=== PATIENT | female | born 1945 | race Caucasian/White ===

== ENCOUNTER 2018-01-09 00:42 | Outpatient (CLI) | payer MEDICARE, BC, SELFPAY ==
--- NOTE | 2018-01-09 07:29 | DI.US_ITS ---
SYMPTOM/DIAGNOSIS: H/O SMALL GALLBLADDER POLYPS, ONE YEAR FOLLOW UP , R10.10, ABD PAIN, CHOLESTEROLOSIS OF GB, K82.4 ABDOMEN ULTRASOUND: Comparison is made with 08/31/16. The liver is normal in size and echogenicity. No biliary dilatation is seen. A few tiny hyperechoic foci are again noted on the gallbladder wall, consistent with tiny cholesterol polyps. There is no wall thickening or stones. The kidneys, spleen and aorta are unremarkable. The head of the pancreas was shadowed by bowel gas. IMPRESSION: Stable appearance of tiny cholesterol polyps of the gallbladder.
== END 2018-01-09 01:02 ==
PROVIDERS: PCP Nurse Practitioner Family; Visit Provider Nurse Practitioner Family
DX: R10.10 Upper abdominal pain, unspecified (principal); K82.4 Cholesterolosis of gallbladder
CPT/HCPCS: 76700

== ENCOUNTER → 2018-01-20 08:17 | Outpatient (BNVA) | payer MEDICARE, BC, SELFPAY | PROVIDERS: PCP Nurse Practitioner Family; Referring Provider Nurse Practitioner Family; Visit Provider Surgery | DX: R10.10 Upper abdominal pain, unspecified (principal); K82.4 Cholesterolosis of gallbladder | CPT/HCPCS: 99213 ==

== ENCOUNTER 2018-07-06 10:50 | Outpatient (CLI) | payer MEDICARE, BC, SELFPAY ==
[2018-07-06 13:12] LABS: Abs Immature Grans 0.01 k/cumm (0.0-0.09); Absolute Basophil Count 0.03 k/cumm (0.0-0.2); Absolute Eosinophil Count 0.04 k/cumm (0.0-0.7); Absolute Lymphocyte Count 1.62 k/cumm (1.2-3.4); Absolute Monocyte Count 0.48 k/cumm (0.11-0.7); Absolute Neutrophil Count 3.18 k/cumm (1.2-6.7); Basophils % 0.6; Eosinophils % 0.7; HCT 38.9 % (36.0-46.0); HGB 12.9 g/dL (12.0-15.5); Immature Grans % 0.2; Lymphocytes % 30.2; Mean Corp. HGB Concentration 33.2 g/dL (32.0-36.0); Mean Corpuscular Hemoglobin 31.5 pg (27.0-33.0); Mean Corpuscular Volume 95.1 fL (80-95); Mean Platelet Volume 10.6 fL (8.0-11.0); Neutrophils % 59.3; Platelet Count 202 x1000/uL (130-400); RBC 4.09 m/cumm (4.00-5.20); RBC Distribution Width 13.1 % (11.7-14.6); White Blood Cell Count 5.36 k/cumm (4.4-10.8)
[2018-07-06 14:04] LABS: Lipase 92 U/L (73-393)
[2018-07-06 14:10] LABS: ALT 31 U/L (12-78); AST 31 U/L (15-37); Albumin 3.9 g/dL (3.4-5.0); Alkaline Phosphatase 116 U/L (46-116); Anion Gap 7.8 mmol/L (3-11); BUN 21 mg/dL (7-18); Bilirubin, Total 0.4 mg/dL (0.2-1.0); CO2 30.2 mmol/L (21.0-32.0); CREATININE 0.84 mg/dL (0.55-1.02); Chloride 100 mmol/L (98-107); Glucose 109 mg/dL (70-100); Potassium 4.3 mmol/L (3.5-5.1); Sodium 138 mmol/L (136-145); Total Protein 7.4 g/dL (6.4-8.2)
== END 2018-07-06 11:10 ==
PROVIDERS: PCP Nurse Practitioner Family; Visit Provider Nurse Practitioner Family
DX: R10.9 Unspecified abdominal pain (principal)
CPT/HCPCS: 36415; 80053; 83690; 85025

== ENCOUNTER 2019-03-07 00:59 | Outpatient (CLI) | payer MEDICARE, BC, SELFPAY ==
--- NOTE | 2019-03-07 08:25 | DI.MAMMO_ITS ---
EXAM: MG MAMMO SCREENING CLINICAL HISTORY: screening, Z12.39. TECHNIQUE: Full field digital CC and MLO mammographic images were obtained with 3D tomosynthesis and utilizing computer aided detection (CAD). COMPARISON: [id number] FINDINGS: Breast Density - Category D - Extremely dense Masses/Architectural Distortion: None seen. Microcalcifications: No suspicious pleomorphic-type calcifications are seen. Skin Thickening/Nipple Retraction: None. Axilla: Unremarkable. IMPRESSION: 1. BI-RADS category 1, negative. No significant interval change with no specific features of maligna ncy noted. 2. Unless there is more urgent need, screening mammography is recommended, as per [employer] guidelines. BI-RADS Cat 1 - Negative Breast Density - Category D - Extremely dense The mammogram demonstrates the patient's breast tissue is dense. Dense breast tissue is very common a nd is not abnormal but dense breast tissue can make it harder to find cancer on a mammogram. Also, de nse breast tissue may increase their breast cancer risk. This information about the result of the [facility] mogram report was provided to the patient to raise their awareness. Use this report when you speak wi th the patient about their risks for breast cancer, which includes their family history. At that time , you may recommend for more screening tests (Ultrasound or MRI) as they might be useful based on the ir risk. A negative radiographic report should not delay biopsy if a dominant or clinically suspicious mass is present. Up to ten percent of cancers are not identified on mammography. A negative report may reinforce clinical impression. Adenosis and dense breasts may obscure an underlying neoplasm. False positive reports average 6 to 10%. A negative radiographic report should not delay biopsy if a dominant or clinically suspicious mass is present. Up to ten percent of cancers are not identified on mammography. A negative report may reinforce clinical impression. Adenosis and dense breasts may obscure an underlying neoplasm. False positive reports average 6 to 10%. Patient will receive a letter notifying them of these results.
[2019-03-07 08:36] LABS: Glucose 102 mg/dL (74-106)
[2019-03-07 11:45] LABS: Hemoglobin A1C 5.8 % (4.5-6.2)
== END 2019-03-07 01:19 ==
PROVIDERS: Nurse Practitioner; PCP Nurse Practitioner Family; Visit Provider Nurse Practitioner Family
DX: Z12.31 Encounter for screening mammogram for malignant neoplasm of breast (principal); R73.01 Impaired fasting glucose
CPT/HCPCS: 36415; 77063; 77067; 82947; 83036

== ENCOUNTER → 2019-06-01 08:10 | Outpatient (BNVA) | payer MEDICARE, BC, SELFPAY | PROVIDERS: PCP Nurse Practitioner Family; Referring Provider Nurse Practitioner Family; Visit Provider Physical Therapy Assistant | DX: Z12.11 Encounter for screening for malignant neoplasm of colon (principal); Z80.0 Family history of malignant neoplasm of digestive organs ==

== ENCOUNTER 2019-08-21 08:18 | Outpatient (CLI) | payer MEDICARE, BC, SELFPAY ==
[2019-08-22 02:53] LABS: COVID-19 RT-PCR UVMMC Result Negative (Negative)
== END 2019-08-21 08:38 ==
PROVIDERS: PCP Nurse Practitioner Family; Visit Provider Surgery
DX: Z11.59 Encounter for screening for other viral diseases (principal); Z01.818 Encounter for other preprocedural examination
CPT/HCPCS: U0003

== ENCOUNTER 2019-08-24 06:46 | Day surgery (SDC) | payer MEDICARE, BC, SELFPAY ==
[2019-08-24 07:03] VITALS: BP 111/61; PULSE 75; RESP 17; TEMP 36.5; O2SAT 99
--- NOTE | 2019-08-24 07:22 | W.PM.HP.N ---
Date of service: 08/24/19 Time of Service: 07:55 Assessment and Plan Assessment and plan (1) Encounter for screening colonoscopy: Status: Acute Assessment and plan: I advised colonoscopy. The procedure was described including the risks of perforation with need for surgery or bleeding. Patient agrees to proceed. History of Present Illness Narrative: 74 y/o female with a benign medical history presents for colonoscopy screening pre-op. Her last screening was in 2009, which was unremarkable. She has a family history of colon cancer in two maternal aunts. She denies any changes in bowel habits including bloody or black tarry stools, abdominal pain, diarrhea or constipation. She denies constitutional symptoms. Denies use of marijuana or any other recreational or illegal drugs. She denies chest pain, palpitations, dyspnea or dyspnea with exertion. She exercises daily participating in cross country skiing, walking, biking and using her [employer] track. She denies prior history or family history of adverse reactions or complications with anesthesia. She denies having any metal implanted in her body. Review of Systems All systems reviewed & are unremarkable except as noted in HPI and below [facility] Medical History Gallbladder polyp (Chronic 09/14/16) F/u US showing stability -- no further f/u necessary Osteoporosis, unspecified (Chronic 04/30/11) DXA 2010: Lumbar spine T-score -2.6 (down -5.7% from 2008 study); Hip T-score -2.4 (improved +4.7) 2nd course alendronate started ~12/2015 --> plan to d/c ~12/2020 Urgency of urination (Inactive 07/31/13) Kegels Urinary incontinence (Chronic) Surgical History Biopsy, Soft Tissue (Resolved 06/09/17) sebaceous cyst upper back History of colonoscopy (Chronic) x2 Family History Mother , Dementia--AD at age 89. Hypertensive disorder, systemic arterial Med Osteoporosis Father , Cirrhosis at age 72. Hemochromatosis Maternal Aunt Colorectal cancer Other Heart disease Social History Smoking/Tobacco Use Status: Former Tobacco Use Quit Date: 03/21/65 Alcohol Intake: current Alcohol Intake frequency: a few times a month Alcohol type: wine Drug use: Never Substance use type: does not use Adopted: No Caregiver/Support person: No Foster care: No Household members: spouse Housing: house Number of Children: 1 Communication Needs: None Pets and animals: No Sexually active: No Current gender identity: female What type of physical activity do you participate in: regular exercise Duration: 30-45 minutes/day Frequency: 5-6 times per week Seatbelt use: always Water heater temp set <120 deg: Yes Working smoke detector in home: Yes Fire extinguisher in home: Yes Carbon monox detector in home: Yes Firearms in home: Yes (unloaded, no locked) Do you feel safe at home: Yes Do you feel safe in your relationship?: Yes Female Reproductive History Menstrual Menopause type: natural History History Para 1 Hx # Term Pregnancies Multiple births Hx # Pregnancies Ectopic pregnancies AB induced Hx Number of Living Children AB spontaneous Meds Home Medications and Allergies Home Medications Medication Instructions Recorded Confirmed Type bjnwtcznlugu-euntrfyo-esqluz 1 ea PO DAILY 07/05/12 08/24/19 History [Cerovite Senior Tablet] acetaminophen [Tylenol] 650 mg PO Q6H PRN PRN #30 tab 06/09/17 08/24/19 Rx ibuprofen 600 mg PO Q6H PRN PRN #30 tab 06/09/17 08/24/19 Rx lactase 9,000 unit tablet 9,000 unit PO ONCE PRN 09/22/18 08/24/19 History bisacodyl 5 mg tablet,delayed 5 mg PO ONCE #4 tab 06/01/19 08/24/19 Rx release polyethylene glycol 3350 17 238 g PO ONCE #238 gm 06/01/19 08/24/19 Rx gram/dose oral powder salicylic acid 40 % topical patch 1 applic TP DAILY each 06/01/19 08/24/19 History alendronate 70 mg tablet 70 mg PO once a week #12 tab-cap 08/20/19 08/24/19 Rx Allergies Allergy/AdvReac Type Severity Reaction Status Date / Time pollen Allergy Unknown Uncoded 08/24/19 07:20 scents in soap, air Allergy Unknown watery eyes Uncoded 08/24/19 07:20 freshners, etc. Exam Narrative Exam Narrative: Appears well Heart RRR Lungs CTA Abdomen soft, nontender Results Last Vital Signs Temp 97.7 F 08/24/19 07:03 Pulse 75 08/24/19 07:03 Resp 17 08/24/19 07:03 BP 111/61 08/24/19 07:03 Pulse Ox 99 08/24/19 07:03 COVID-19 Screening In the past 14 days, have you traveled outside of [place] or [place]?: NO
[2019-08-24] MEDS: Lactated Ringers 1,000 ML 80 ML IV (07:34)
--- NOTE | 2019-08-24 08:05 | W.PM.DSUDISC ---
Discharge Plan Disposition Patient Disposition: HOME Condition: Good Discharge Details Reason For Visit: Colonoscopy Attending Provider: Jailene Jones Primary Care Provider: Lizzie Long Home Meds and New Rx's Prescriptions: Continued salicylic acid 40 % adhesive patch,medicated 1 applic TP DAILY RF: 0 Dairy Relief 9,000 unit tablet 9,000 unit PO ONCE PRN (Reason: lactose intolerance) RF: 0 Cerovite Senior 1 EACH tablet 1 ea PO DAILY RF: 0 alendronate [Fosamax] 70 mg tablet 70 mg PO once a week Qty: 12 RF: 0 acetaminophen [Tylenol] 325 MG tablet 650 mg PO Q6H PRN PRNQty: 30 RF: 0 ibuprofen 600 MG tablet 600 mg PO Q6H PRN PRNQty: 30 RF: 0 Discontinued polyethylene glycol 3350 17 gram/dose powder 238 g PO ONCE Qty: 238 RF: 0 bisacodyl [Dulcolax (bisacodyl)] 5 mg tablet,delayed release (DR/EC) 5 mg PO ONCE Qty: 4 RF: 0 Discharge Instructions Additional Instructions: Findings: Your colonoscopy was normal. Follow up: Routine screening colonoscopy is not needed, but if symptoms such as change in bowel habits or rectal bleeding occur, please contact your primary care provider. Please call if you develop: fevers >101.5 Nausea or Vomiting Abdominal pain that is not transient DAY SURGERY UNIT POST COLONOSCOPY INSTRUCTIONS 1. Because there will be medication in your system for the next 24 hours, you may feel a little sleepy. Your coordination will be affected. Therefore: a. Do not drive or operate dangerous equipment for 24 hours. b. Do not drink alcohol beverages for 24 hours (not even beer). c. Plan to go home and rest for the day. 2. Generally there are no restrictions on your activity after a day or so has gone by, but you may feel a bit fatigued for a few days. 3 After you arrive home you may have a light meal and return to a normal diet as you can tolerate it without feeling sick to your stomach. 4. After surgery, you may feel pain or discomfort. This should be only transient, but if it persists please contact your doctor. 5. If there are any questions regarding the findings of your procedure, please feel free to contact your doctor. 6. If you are unable to contact your doctor with a problem, contact the hospital at [phone]. 7. Continue all your regular medications unless directed otherwise. I understand the above instructions and have no questions. Signature of Patient or Responsible Adult Escort Date/Time Name of Responsible Adult Escort Signature of Nurse Date/Time Activity:: Activity as Tolerated Diet:: As Tolerated Discharge Orders Discharge Orders: Discharge Order (Routine); Ordered 08/24/19 Ordered By: Jailene Jones DS: Diagnosis Discharge Diagnosis (1) Encounter for screening colonoscopy: Status: Acute
--- NOTE | 2019-08-24 08:06 | ROE_ITS ---
Date of service: 08/24/19 Time of Service: 08:49 Operative Note Operative Note DATE OF PROCEDURE: 08/24/19 PRE-OP DIAGNOSIS: Screening Normal colon PROCEDURE: Colonoscopy SURGEON: Jailene Jones ANESTHESIA: MAC Patient was transported to: same day Indications: This patient presents for routine screening. She has no symptoms or family history of colon cancer. Last colonoscopy in 2009 was normal. Procedure Description: The patient was placed in the left Ramey position. Propofol was titrated to sedation. Digital rectal examination revealed no abnormalities. The scope was advanced to the cecum without difficulty. The i leocecal valve and appendiceal orifice were clearly identified. The prep was good. The scope was slowly withdrawn over the course of greater than 6 minutes with no abnormalities seen in the ascending, transverse, descending, sigmoid colon or rectum including on retroflexed view. The patient tolerated the procedure well and was stable to recovery. Routine screening is not indicated but colonoscopy can be considered if symptoms arise.
[2019-08-24 09:15] VITALS: BP 91/52; PULSE 68; RESP 18; TEMP 36.4; O2SAT 99
== END 2019-08-24 10:00 | disposition home or self-care (01) ==
PROVIDERS: PCP Nurse Practitioner Family; Visit Provider Surgery
PROC: 0DJD8ZZ Inspection of Lower Intestinal Tract, Via Natural or Artificial Opening Endoscopic (ICD-10-PCS; CPT 45378; principal; 2019-08-24 08:15)
DX: Z12.11 Encounter for screening for malignant neoplasm of colon (principal)
CPT/HCPCS: G0121; NC

== ENCOUNTER 2020-05-15 02:19 | Outpatient (CLI) | payer MEDICARE, BC, SELFPAY ==
[2020-05-15 09:27] LABS: Abs Immature Grans 0.01 10^3/uL (0.0-0.06); Absolute Basophil Count 0.05 10^3/uL (0.0-0.2); Absolute Eosinophil Count 0.08 10^3/uL (0.0-0.7); Absolute Lymphocyte Count 1.25 10^3/uL (1.2-3.4); Absolute Monocyte Count 0.56 10^3/uL (0.1-0.8); Absolute Neutrophil Count 2.55 10^3/uL (1.2-6.7); Basophils % 1.1; Eosinophils % 1.8; HGB 12.8 g/dL (11.2-15.7); Immature Grans % 0.2; Lymphocytes % 27.8; MCH 31.8 pg (27.0-33.0); MCHC 32.8 % (32.0-36.0); MPV 10.6 fL (8.0-11.0); Monocytes % 12.4; Neutrophils % 56.7; Nucleated RBC 0 %; Platelet Count 204 10^3/uL (130-400); RBC 4.02 10^6/uL (3.93-5.22); RDW 12.9 % (11.7-14.6)
[2020-05-15] MEDS: Breeza Beverage 473 ML BTL PO (09:46)
[2020-05-15] MEDS: Omnipaque 350 MG/ML 50 ML BTL PO (09:46)
[2020-05-15 09:49] LABS: ALT 30 U/L (14-59); AST 32 U/L (15-37); Albumin 3.9 g/dL (3.4-5.0); Alkaline Phosphatase 124 U/L (46-116); Anion Gap 4.9 mmol/L (3-11); BUN 20 mg/dL (7-18); Bilirubin, Total 0.7 mg/dL (0.2-1.0); CO2 30.1 mmol/L (21.0-32.0); CREATININE 0.8 mg/dL (0.55-1.02); Calcium 8.9 mg/dL (8.5-10.1); Chloride 104 mmol/L (98-107); Glucose 110 mg/dL (74-106); Lipase 76 U/L (73-393); Potassium 3.9 mmol/L (3.5-5.1); Sodium 139 mmol/L (136-145); Total Protein 7.9 g/dL (6.4-8.2)
[2020-05-15 10:16] LABS: Hemoglobin A1C 5.8 % (<5.7)
--- NOTE | 2020-05-15 10:25 | DI.CT_ITS ---
EXAM: CT ABDOMEN W CLINICAL HISTORY: abd pain w/ twisting, s/p NL US, persists, r/o mass,. TECHNIQUE: Imaging Protocol: Axial computed tomography images with coronal and sagittal reformatted images were created and reviewed CONTRAST MATERIAL: Intravenous: Omnipaque 350-100 cc Oral: Yes COMPARISON: US US ABDOMEN from 01/09/2018 FINDINGS: VISUALIZED LUNG BASES: No nodules nor pleural effusions evident. ABDOMEN: There is no ascites in the upper abdomen. LIVER: There are no obvious focal hepatic lesions evident of this noninfused study. GALLBLADDER/BILIARY: No obvious gallbladder pathology. CBD is not dilated. PANCREAS: No evidence of pancreatic mass nor dilatation of the pancreatic duct. SPLEEN: Spleen is not enlarged. No obvious intrasplenic lesions. ADRENALS: There are no significant adrenal masses. KIDNEYS:No cysts evident. No solid renal masses. No calculi nor hydronephrosis. . ABDOMINAL AORTA: Abdominal aorta is not enlarged. LYMPH NODES: There is no retroperitoneal nor paraaortic adenopathy. ABDOMINAL WALL/GI: No evidence of significant anterior abdominal hernia at and above the umbilicus le javier. There is no bowel obstruction. The oral contrast has reached the colon. OSSEOUS: No lytic osseous lesions. Advanced disc space narrowing L5-S1 level noted. IMPRESSION: 1. No significant findings on this contrast infused CT scan of the abdomen. 2. I note the prior ultrasound examination 2017 apparently revealed findings in the gallbladder. Cli nically indicated repeat gallbladder ultrasound can be performed. 3. Pelvis was not scanned RADIATION DOSE DELIVERED: 272.48mGy.cm Total DLP DATA REPOSITORY: All CT scans at this facility are submitted to the National Radiology Data Registry (NRDR) Dose Index Registry (DIR) with the [employer] (A[employer]). RADIATION OPTIMIZATION: All CT scans at this facility use at least one of these dose optimization te chniques: automated exposure control; mA and/or kV adjustment per patient size (includes targeted exa ms where dose is matched to clinical indication); or iterative reconstruction.
[2020-05-15] MEDS: Omnipaque 350 MG/ML 100 ML BTL IJ (10:33)
[2020-05-15] MEDS: Normal Saline - Diluent 50 ML VIAL IV (10:33)
[2020-05-15] MEDS: Normal Saline Flush 10 ML SYR IVP (10:35)
== END 2020-05-15 02:20 ==
LOC: DI 02:19
PROVIDERS: PCP Nurse Practitioner Family; Visit Provider Nurse Practitioner Family
DX: R10.10 Upper abdominal pain, unspecified (principal)
CPT/HCPCS: 80053; 83690; 74160; 83036; 85025; J3490; Q9967

== ENCOUNTER 2021-04-29 01:42 | Outpatient (CLI) | payer MEDICARE, SELFPAY ==
[2021-04-29 14:28] LABS: Hemoglobin A1C 5.9 % (<5.7)
[2021-04-29 15:39] LABS: Anion Gap 7.1 mmol/L (3-11); BUN 22 mg/dL (7-18); CO2 29.9 mmol/L (21.0-32.0); CREATININE 0.9 mg/dL (0.55-1.02); Calcium 9.5 mg/dL (8.5-10.1); Chloride 103 mmol/L (98-107); Glucose 129 mg/dL (74-106); Potassium 4.3 mmol/L (3.5-5.1); Sodium 140 mmol/L (136-145)
[2021-04-30 00:09] LABS: Vitamin D 25 Total 33.5 ng/mL (30-100)
== END 2021-04-29 01:43 | disposition home or self-care (01) ==
LOC: LBO 01:42
PROVIDERS: PCP Nurse Practitioner Family; Visit Provider Nurse Practitioner Family
DX: R73.01 Impaired fasting glucose (principal); M81.0 Age-related osteoporosis without current pathological fracture; Z51.81 Encounter for therapeutic drug level monitoring
CPT/HCPCS: 36415; 80048; 82306; 83036

== ENCOUNTER 2021-05-11 01:48 | Outpatient (CLI) | payer MEDICARE, SELFPAY ==
--- NOTE | 2021-05-11 08:15 | DI.MAMMO_ITS ---
Exam(s) MAMMO SCREENING EXAM: MAMMO SCREENING CLINICAL HISTORY: screening,z12.39. TECHNIQUE: Bilateral full field digital CC and MLO mammographic images were obtained with 3D tomosyn thesis and utilizing computer aided detection (CAD). COMPARISON: Prior mammograms were reviewed, the most recent being February 2019. FINDINGS: The fibroglandular tissue is again noted be very dense, this decreasing the sensitivity of the mammog graciela for finding hidden underlying lesions. There are no new obvious spiculated masses nor malignant appearing microcalcification groups. There is no significant architectural distortion nor skin thickening-retraction. IMPRESSION: Very dense bilateral fibroglandular tissue. No obvious radiographic evidence of malignancy nor signi ficant change compared to prior mammograms. Given the density of this patient's fibroglandular tissu e if clinically indicated bilateral screening breast ultrasound exam can be performed to determine if there are hidden lesion subjacent to her dense fibroglandular tissue on mammography. BI-RADS Category 2 - Benign Findings Breast Density - Category D - Extremely dense Breast density Category C or D implies that the patient has dense breast tissue. Dense breast tissue can make it harder to find cancer on a mammogram. Dense breast tissue is also associated with an incr eased risk of breast cancer. This information about the result of the mammogram report was provided to the patient to raise their awareness. Use this report when you speak with the patient about their risks for breast cancer, which includes their family history. At that time, you may recommend additional screening tests (Ultrasoun d or MRI) as these tests may add significant information. A negative radiographic report should not delay biopsy if a dominant or clinically suspicious mass is present. Up to ten percent of cancers are not identified on mammography. A negative report may reinforce clinical impression. Adenosis and dense breasts may obscure an underlying neoplasm. False positive reports average 6 to 10%. Patient will receive a letter notifying them of these results.
== END 2021-05-11 02:08 ==
PROVIDERS: PCP Nurse Practitioner Family; Visit Provider Nurse Practitioner Family
DX: Z12.31 Encounter for screening mammogram for malignant neoplasm of breast (principal); N64.89 Other specified disorders of breast
CPT/HCPCS: 77063; 77067

== ENCOUNTER → 2022-04-12 11:08 | Outpatient (BNVA) | payer MEDICARE, SELFPAY | PROVIDERS: PCP Nurse Practitioner Family; Referring Provider Nurse Practitioner Family; Visit Provider Surgery | DX: K62.5 Hemorrhage of anus and rectum (principal); R53.83 Other fatigue; M81.0 Age-related osteoporosis without current pathological fracture; Z86.2 Personal history of diseases of the blood and blood-forming organs and certain disorders involving the immune mechanism | CPT/HCPCS: 36415; 99212; 99214 ==

== ENCOUNTER 2022-04-12 12:10 | Outpatient (REF) | payer MEDICARE, SELFPAY ==
[2022-04-12 12:31] LABS: Abs Immature Grans 0.01 10^3/uL (0.0-0.06); Absolute Basophil Count 0.05 10^3/uL (0.0-0.2); Absolute Lymphocyte Count 1.36 10^3/uL (1.2-3.4); Absolute Monocyte Count 0.55 10^3/uL (0.1-0.8); Absolute Neutrophil Count 3.08 10^3/uL (1.2-6.7); Eosinophils % 1.9; HCT 37.4 % (36.0-46.0); HGB 12.6 g/dL (11.2-15.7); Immature Grans % 0.2; Lymphocytes % 26.4; MCHC 33.7 % (32.0-36.0); MCV 95 fL (80-95); MPV 11.3 fL (8.0-11.0); Monocytes % 10.7; Neutrophils % 59.8; Platelet Count 191 10^3/uL (130-400); RBC 3.94 10^6/uL (3.93-5.22); RDW 12.5 % (11.7-14.6); RDW-SD 43.9 fL; WBC 5.15 10^3/uL (4.4-10.8)
[2022-04-12 13:05] LABS: Iron 89 ug/dL (50-170); Total Iron Binding Capacity 345 ug/dL (250-450); Transferrin Sat 26 % (15-50)
[2022-04-12 13:10] LABS: ALT 28 U/L (14-59); AST 32 U/L (15-37); Albumin 3.9 g/dL (3.4-5.0); Alkaline Phosphatase 120 U/L (46-116); Anion Gap 8.2 mmol/L (3-11); BUN 25 mg/dL (7-18); Bilirubin, Total 0.6 mg/dL (0.2-1.0); CO2 26.8 mmol/L (21.0-32.0); CREATININE 0.8 mg/dL (0.55-1.02); Calcium 9.3 mg/dL (8.5-10.1); Chloride 103 mmol/L (98-107); Estimated GFR 76.31 (mL/min/1.73m2); Ferritin 179 ng/mL (8-252); Folate 19.9 ng/mL (8.6-20.0); Glucose 107 mg/dL (74-106); Potassium 4.1 mmol/L (3.5-5.1); Sodium 138 mmol/L (136-145); Total Protein 7.7 g/dL (6.4-8.2); Vitamin B12 909 pg/mL (193-986)
== END 2022-04-12 12:11 | disposition home or self-care (01) ==
LOC: LBN 12:10
PROVIDERS: PCP Nurse Practitioner Family; Visit Provider Surgery
DX: K62.5 Hemorrhage of anus and rectum (principal); M81.0 Age-related osteoporosis without current pathological fracture; R53.83 Other fatigue; R73.01 Impaired fasting glucose; Z86.2 Personal history of diseases of the blood and blood-forming organs and certain disorders involving the immune mechanism
CPT/HCPCS: 80053; 82607; 82728; 82746; 83540; 83550; 85025

== ENCOUNTER 2022-04-22 09:48 | Day surgery (SDC) | payer MEDICARE, SELFPAY ==
--- NOTE | 2022-04-21 21:33 | W.PM.DSUDISC ---
Date of service: 04/22/22 Time of Service: 12:07 Discharge Plan Disposition Patient Disposition: Home Condition: Good Discharge Details Reason For Visit: Diagnostic colonoscopy Attending Provider: Mitch Jones Primary Care Provider: Lizzie Long Home Meds and New Rx's Prescriptions: Continued lactase [Dairy Relief] 9,000 unit tablet 9,000 unit PO ONCE PRN (Reason: lactose intolerance) Cerovite Senior 1 EACH tablet 1 ea PO DAILY Discontinued polyethylene glycol 3350 17 gram/dose powder 238 g PO ONCE Qty: 238 0RF Rx Instructions: take per colonoscopy instructions bisacodyl [Dulcolax (bisacodyl)] 5 mg tablet,delayed release (DR/EC) 5 mg PO ONCE Qty: 4 0RF Rx Instructions: take per colonoscopy instructions Discharge Instructions Instructions: Hemorrhoids (GEN), Rectal Bleeding (GEN) Additional Instructions: 1. If tolerated, consume a soft, low fiber diet for 1-2 days. 2[address] Do not drive, drink alcohol, operate machinery, make critical decisions, or do activities that require coordination or balance for 24 hours. 3. Because air was put into your colon during the procedure, expelling air from your rectum (passing gas or farting) is normal. 4. You may not have a bowel movement for 1-3 days because of the colonoscopy prep. This is normal. 5. Go directly to the emergency room if you notice any of the following: Develop chills (warm to touch), or if you have a thermometer and your temperature is above 101 Difficulty breathing or difficultly swallowing Persistent vomiting Severe abdominal pain, other than gas cramps Severe chest pain Black, tarry stools Any bleeding ? exceeding one tablespoon 6. Call your physician if the site where your intravenous was started becomes red, swollen, painful, and warm to touch. 7. Your physician has reviewed your pre-procedure medications. Please continue to take those medications as previously ordered. You will be given specific information/education regarding any changes to your medications before leaving. Activity:: Activity as Tolerated Diet:: As Tolerated Discharge Orders Discharge Orders: Discharge Order (Routine); Ordered 04/21/22 Ordered By: Mitch Jones DS: Diagnosis Discharge Diagnosis (1) Rectal bleeding: Status: Acute Asessment and Plan: No clear source of rectal bleeding identified. Grade 1 internal hemorrhoids.
--- NOTE | 2022-04-21 21:34 | W.COLOREPORT ---
Date of service: 04/22/22 Time of Service: 12:10 Colonoscopy Report Date of procedure: 04/22/22 Pre-op diagnosis general: Hematochezia Procedure: Colonoscopy Surgeon: Mitch Jones Anesthesia Type: General:No Airway Complications: None Disposition: same day Indications: Blanche is a 77-year-old woman with a recent episode of hematochezia. Prep: Miralax/Dulcolax Procedure Start Time: 11:35 Procedure End Time: 11:53 Retraction Time: 10 Findings: Normal colonoscopy Procedure Description: After the induction of monitored anesthetic care, and with the patient in left lateral decubitus position, I began by performing an external anorectal exam.? Perineum and skin were normal, as was the anal verge.? There was no evidence of external hemorrhoids.? Next, I performed a digital rectal exam.? I did not appreciate any abnormal findings.? Next, I advanced a colonoscope into the rectal vault.? I performed retroflexion.? There was mild evidence of internal hemorrhoids, with no dominant vessels. The remainder of the rectal vault was totally normal. There was no erythema. The mucosa was not friable. There was no evidence of any AV malformations.? Using insufflation, I then advanced the colonoscope beyond the rectal folds and into the sigmoid colon before advancing towards the cecum.? The quality of the prep was excellent.? The scope was noted to be in the cecum by identification of the ileocecal valve and appendiceal orifice.? I then began withdrawing the colonoscope using repeated irrigation as necessary for full evaluation of the colonic mucosa. ?Once the scope was withdrawn to the level of the rectum, great care was taken to examine portions of the rectal folds.? Finally, the scope was withdrawn and the patient was brought to the same-day surgery recovery unit as the anesthetic wore off. ?The findings and instructions were shared with the patient prior to discharge.
[2022-04-22 10:10] VITALS: BP 100/77; PULSE 72; RESP 18; TEMP 36.1; O2SAT 99
[2022-04-22] MEDS: Lactated Ringers 1,000 ML 80 ML IV (10:21)
--- NOTE | 2022-04-22 10:51 | ANES.PREOP_ITS ---
General Info Date of Service Date Performed: 04/22/22 Height: 5 ft 4 in Weight: 47.8 kg Body Mass Index (BMI): 18.1 Surgical Procedure: Operation Date: 04/22/22 11:25 Proposed Procedure Side Surgeon p Colonoscopy possible Biopsy Mitch Jones MD s Possible Internal Hemorrhoid Banding Mitch Jones MD Meds Allergies and Home Medications Allergies Allergy/AdvReac Type Severity Reaction Status Date / Time pollen Allergy Unknown Uncoded 04/22/22 10:16 scents in soap, air Allergy Unknown watery eyes Uncoded 04/22/22 10:16 freshners, etc. Home Medication Medication Instructions Recorded [id number] 1 ea PO DAILY 07/05/12 tablet (Cerovite Senior) lactase 9,000 unit tablet (Dairy 9,000 unit PO ONCE PRN lactose 09/22/18 Relief) intolerance Current Visit Medications: Current Medications Generic Name Dose Route Start Last Admin Trade Name Freq PRN Reason Stop Dose Admin Hyoscyamine Sulfate 0.125 mg 04/21/22 21:35 Hyoscyamine 0.125 Mg Sl/Oral/Chew SL DIRECTED PRN Ringer's Solution 1,000 mls @ 80 mls/hr 04/22/22 06:00 04/22/22 10:21 IV 05/21/22 23:59 80 mls/hr INFUSION JOON Administration IV Miscellaneous Supplies 1 each 04/22/22 06:00 Iv Access IV 05/21/22 23:59 DIRECTED JOON Ondansetron HCl 4 mg 04/21/22 21:35 Ondansetron 4 Mg/2 Ml Vial IVP Q4H PRN PRN Nausea / Vomiting Sodium Chloride 0 ml 04/22/22 06:00 Normal Saline Flush 10 Ml Syr IV 05/21/22 23:59 PRN PRN Sodium Chloride 0 ml 04/22/22 06:00 Normal Saline 10 Ml Vial IJ 05/21/22 23:59 DIRECTED PRN Sterile Water 0 ml 04/22/22 06:00 Water,Injection,Sterile 10 Ml Vial IJ 05/21/22 23:59 DIRECTED PRN PFSH Active Problems Active Problems: Problem Status Onset Code History of anemia Z86.2 Fatigue R53.83 Rectal bleeding K62.5 Lactose intolerance E73.9 Combined forms of age-related cataract, 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 IFG (impaired fasting glucose) R73.01 Urinary incontinence R32 Osteoporosis, unspecified 04/30/11 M81.0 Medical History Medical History Abdominal pain Gallbladder polyp (09/14/16) F/u US showing stability -- no further f/u necessary Hematochezia Surgical History Surgical History Biopsy, Soft Tissue (06/09/17) sebaceous cyst upper back History of colonoscopy x2 Tobacco Smoking/Tobacco Use Status: Former Tobacco Use Passive smoking exposure: No Alcohol Alcohol Intake: current Alcohol intake frequency: a few times a month Alcohol type: wine Substance Use Substance use: Never Substance use type: does not use Prental History History Para 1 Hx # Term Pregnancies Multiple births Hx # Pregnancies Ectopic pregnancies AB induced Hx Number of Living Children AB spontaneous Vital Signs and Lab Results Vital Signs Most Recent Vital Signs in EMR: Most Recent Vital Signs Temp Pulse Resp BP Pulse Ox 36.1 C L 72 18 100/77 99 04/22/22 10:10 04/22/22 10:10 04/22/22 10:10 04/22/22 10:10 04/22/22 10:10 Lab Results Blood Type / Crossmatch: No Data to Display Complete Blood Count: White Blood Count 5.15 10^3/uL (4.4-10.8) 04/12/22 12:00 Red Blood Count 3.94 10^6/uL (3.93-5.22) 04/12/22 12:00 Hemoglobin 12.6 g/dL (11.2-15.7) 04/12/22 12:00 Hematocrit 37.4 % (36.0-46.0) 04/12/22 12:00 Platelet Count 191 10^3/uL (130-400) 04/12/22 12:00 Complete Metabolic Panel: Sodium 138 mmol/L (136-145) 04/12/22 12:00 Potassium 4.1 mmol/L (3.5-5.1) 04/12/22 12:00 Chloride 103 mmol/L (98-107) 04/12/22 12:00 Carbon Dioxide 26.8 mmol/L (21.0-32.0) 04/12/22 12:00 BUN 25 mg/dL (7-18) H 04/12/22 12:00 Creatinine 0.8 mg/dL (0.55-1.02) 04/12/22 12:00 Est GFR (CKD-EPI 2020) 76.31 (mL/min/1.73m2) 04/12/22 12:00 Calcium 9.3 mg/dL (8.5-10.1) 04/12/22 12:00 Albumin 3.9 g/dL (3.4-5.0) 04/12/22 12:00 Glucose 107 mg/dL (74-106) H 04/12/22 12:00 Liver Function Panel: Alanine Aminotransferase (ALT/SGPT) 28 U/L (14-59) 04/12/22 12: 00 Aspartate Amino Transf (AST/SGOT) 32 U/L (15-37) 04/12/22 12:00 Coagulation Panel: No Data to Display Cardiac Panel: No Data to Display Arterial Blood Gas: No Data to Display Venous Blood Gas: No Data to Display Pancreas Panel: No Data to Display Thyroid Panel: No Data to Display Infectious Disease: No Data to Display Blood Cultures: No Data to Display Toxicology Panel: No Data to Display Anesthesia Assessment and Plan Anesthesia History Personal History: No History of Anesthesia Complications Family History: No Family History of Anesthesia Complications Exercise Tolerance Exercise Tolerance: Metabolic Equivalents>4 Pertinent Negatives Pertinent Negatives: No Symptoms of GERD Cardiac & Pulmonary Exam Cardiac Exam: Normal S1/S2 Heart Sounds Pulmonary Exam: Clear Bilateral Breath Sounds Implantable Cardiac Device Does patient have a Pacemaker or an ICD?: No Airway Exam Known Difficult Airway: No Mallampati Class: 3 Mouth Opening: Normal (> 3cm) Thyromental Distance: Greater than 3 cm Neck Range of Motion: Full ROM Neck Circumference: Normal Teeth Condition: Normal Dentition ASA Classification ASA Score: ASA 3 Emergency Case?: No NPO Status NPO Status: NPO Clears >2 hours, Solids >8 hours Anesthesia Plan Resuscitation Status: Full Code Anesthesia Technique: General Anesthesia Airway Planned: Natural Airway Monitors Used: Standard Monitors
[2022-04-22 11:23] VITALS: BMI 18.1
[2022-04-22 12:02] VITALS: BP 94/67; PULSE 68; RESP 16; TEMP 35.9; O2SAT 97
--- NOTE | 2022-04-22 12:14 | W.ANESPOSTOP ---
Postoperative Evaluation Date, Time and Location Date Performed: 04/22/22 Time Performed: 12:14 Patient Location: Day Surgery Unit Vital Signs Most Recent Imported Vital Signs: Most Recent Vital Signs Temp Pulse Resp BP Pulse Ox 35.9 C L 68 16 94/67 L 97 04/22/22 12:02 04/22/22 12:02 04/22/22 12:02 04/22/22 12:02 04/22/22 12:02 Pain Score Most Recent Pain Score: Most Recent Pain Score Pain Level 0 04/22/22 12:02 Assessment Mental Status: Awake (Alert & Oriented to Patient Baseline) Airway and Respiratory Function: Patent airway with normal (patient baseline) respiratory exam Cardiovascular Function: Hemodynamically Stable Hydration Status: Adequately Hydrated Nausea & Vomiting: No Nausea or Vomiting Pain: Pt. Denies Any Pain Peripheral Nerve Block: Patient did not receive a nerve block
[2022-04-22 12:37] VITALS: BP 107/64; PULSE 64; RESP 16; TEMP 36.1; O2SAT 99
== END 2022-04-22 13:00 | disposition home or self-care (01) ==
PROVIDERS: PCP Nurse Practitioner Family; Visit Provider Surgery
PROC: 0DJD8ZZ Inspection of Lower Intestinal Tract, Via Natural or Artificial Opening Endoscopic (ICD-10-PCS; CPT 45378; principal; 2022-04-22 11:15)
DX: K62.5 Hemorrhage of anus and rectum (principal)
CPT/HCPCS: 45378

== ENCOUNTER 2022-05-05 02:08 | Outpatient (CLI) | payer MEDICARE, SELFPAY ==
[2022-05-05 13:38] LABS: Hemoglobin A1C 5.9 % (<5.7)
[2022-05-05 14:38] LABS: Vitamin D 25 Total 33.8 ng/mL (30-100)
== END 2022-05-05 02:09 | disposition home or self-care (01) ==
LOC: LBO 02:08
PROVIDERS: PCP Nurse Practitioner Family; Visit Provider Nurse Practitioner Family
DX: R73.01 Impaired fasting glucose (principal); M81.0 Age-related osteoporosis without current pathological fracture
CPT/HCPCS: 36415; 82306; 83036

== ENCOUNTER 2023-07-20 05:40 | Outpatient (CLI) | payer MEDICARE, SELFPAY ==
[2023-07-20 09:52] LABS: Abs Immature Grans 0.02 10^3/uL (0.0-0.06); Absolute Basophil Count 0.04 10^3/uL (0.0-0.2); Absolute Lymphocyte Count 0.94 10^3/uL (1.2-3.4); Absolute Monocyte Count 0.52 10^3/uL (0.1-0.8); Basophils % 0.8 %; HCT 39.5 % (36.0-46.0); HGB 12.9 g/dL (11.2-15.7); Immature Grans % 0.4 %; Lymphocytes % 19.1 %; MCH 31.9 pg (27.0-33.0); MCHC 32.7 % (32.0-36.0); MCV 98 fL (80-95); MPV 10.4 fL (8.0-11.0); Monocytes % 10.6 %; Neutrophils % 69.1 %; Platelet Count 192 10^3/uL (130-400); RBC 4.05 10^6/uL (3.93-5.22); RDW 12.7 % (11.7-14.6); RDW-SD 45.7 fL; WBC 4.92 10^3/uL (4.4-10.8)
[2023-07-20 10:09] LABS: BUN 31 mg/dL (7-18); CREATININE 0.8 mg/dL (0.55-1.02); Calcium 8.6 mg/dL (8.5-10.1); Chloride 105 mmol/L (98-107); Estimated GFR 75.84 (mL/min/1.73m2); Glucose 98 mg/dL (74-106); Potassium 4.1 mmol/L (3.5-5.1); Sodium 140 mmol/L (136-145)
[2023-07-20 10:40] LABS: Hemoglobin A1C 6.1 % (<5.7)
[2023-07-20 10:53] LABS: Vitamin D 25 Total 33.9 ng/mL (30-100)
== END 2023-07-20 05:41 | disposition home or self-care (01) ==
LOC: LBO 05:41
PROVIDERS: PCP Nurse Practitioner Family; Referring Provider Nurse Practitioner Adult Health; Visit Provider Nurse Practitioner Adult Health
DX: R73.01 Impaired fasting glucose (principal); M81.0 Age-related osteoporosis without current pathological fracture; Z86.2 Personal history of diseases of the blood and blood-forming organs and certain disorders involving the immune mechanism
CPT/HCPCS: 36415; 80048; 82306; 83036; 85025

== ENCOUNTER 2024-06-15 01:01 | Outpatient (CLI) | payer MEDICARE, SELFPAY ==
[2024-06-15 11:02] LABS: HCT 40.8 % (36.0-46.0); HGB 13.4 g/dL (11.2-15.7); MCH 31.7 pg (27.0-33.0); MCHC 32.8 % (32.0-36.0); MCV 97 fL (80-95); MPV 10.3 fL (8.0-11.0); Platelet Count 206 10^3/uL (130-400); RBC 4.23 10^6/uL (3.93-5.22); RDW 13.2 % (11.7-14.6); RDW-SD 47.3 fL
[2024-06-15 11:09] LABS: Hemoglobin A1C 5.9 % (<5.7)
[2024-06-15 11:15] LABS: Anion Gap 3.7 mmol/L (3-11); BUN 23 mg/dL (7-18); CO2 32.3 mmol/L (21.0-32.0); CREATININE 0.8 mg/dL (0.55-1.02); Calcium 9.4 mg/dL (8.5-10.1); Chloride 105 mmol/L (98-107); Estimated GFR 75.37 (mL/min/1.73m2); Glucose 107 mg/dL (74-106); Potassium 4.3 mmol/L (3.5-5.1); Sodium 141 mmol/L (136-145)
== END 2024-06-15 01:02 | disposition home or self-care (01) ==
LOC: LBO 01:02
PROVIDERS: Absent Provider Nurse Practitioner Adult Health; PCP Nurse Practitioner Adult Health; Referring Provider Nurse Practitioner Adult Health; Visit Provider Nurse Practitioner Adult Health
DX: R73.01 Impaired fasting glucose (principal); Z86.2 Personal history of diseases of the blood and blood-forming organs and certain disorders involving the immune mechanism
CPT/HCPCS: 36415; 80048; 85027; 83036

== ENCOUNTER 2024-09-09 09:36 | Emergency (ER) | payer MEDICARE, SELFPAY ==
[2024-09-09 09:45] VITALS: BP 99/49; PULSE 68; RESP 16; TEMP 36.2; O2SAT 97
--- NOTE | 2024-09-09 09:45 | DI.RAD_ITS ---
Exam(s) XR FOOT LT COMPLETE XR ANKLE LT COMPLETE EXAM: XR ANKLE LT COMPLETE and XR foot LT complete CLINICAL HISTORY: slip fall last night L foot/ankle pain TECHNIQUE: 2D digital imaging was performed of the left foot and ankle. Six images were obtained. AP, lateral and oblique views were obtained. COMPARISON: There are no priors for comparison. FINDINGS: BONES: No acute fracture is present. No bony destructive lesion is seen. JOINTS:The ankle mortise is normally aligned. The joints are well maintained in the foot and ankle. SOFT TISSUE: Normal. IMPRESSION: There is no acute fracture or dislocation. DATA REPOSITORY: RADIATION DOSE DELIVERED:
--- NOTE | 2024-09-09 09:50 | W.ED.GENAD ---
Discharge Plan Disposition Patient Disposition: Home Condition: Stable Discharge Details Clinical Impression: Sprain of left ankle Primary Care Provider: Morelia Montanez ED Provider: Rufus Thomson Home Meds and New Rx's Prescriptions: Continued ondansetron HCl 4 mg tablet 4 mg PO Q8H PRN (Reason: nausea and vomiting) Qty: 10 0RF lactase [Dairy Relief] 9,000 unit tablet 9,000 unit PO ONCE PRN (Reason: lactose intolerance) (DME) Incontinence briefs S See Rx Instructions .Route .MEDSUPPLY Qty: 6 11RF Rx Instructions: 6 per month Cerovite Senior 1 EACH tablet 1 ea PO DAILY Discharge Instructions Instructions: Ankle Sprain ED Additional Instructions: You were seen in the ER for your L foot and ankle pain - there is no fracture seen on your X-Ray. Please rest, ice, compress, and elevate your foot/ankle often over the the next few days. Please use therapeutic dosing of Tylenol (acetamenophen) & Advil (ibuprofen) in an alternating fashion as follows: Take 1000mg of Tylenol every 6 hours without missing doses- that is 4 times per day. [facility] in between the Tylenol dosings, take 400-600mg of Advil also on a 6 hour schedule, that is also 4 times per day. The daily maximum dosing of Tylenol is 4000mg, and the daily maximum dosing of Advil is 2400mg. This is safe to do for weeks. Please note that some common cold medications & prescription pain medications may contain acetamenophen and you need to read OTC drug labels and factor that in to maximum daily dosings. Please follow-up with Orthopaedics should your pain persist > 2 weeks. Referrals: [facility] [Provider Group] Morelia Montanez, [employer] [Primary Care Provider, Medicine] HPI General Date/Time Provider Initiated Documentation: 09/09/24 09:50. HPI Narrative: 79 year-old female presents to ED today by POV/ambulating with a chief complaint of L foot/ankle pain with onset last night after slipping on a wet rock while watering her garden- was able to remain standing for cooking dinner etc last night. Quality described as mild anterior ankle and lateral foot pain, no radiation to numbness/tingling, ecchymosis, swelling, deformity, proximal calf pain. Severity is described as mild. Palliating factors include nothing specific attempted. Provoking factors include weight-bearing. Events leading up to the incident/Associated Symptoms: Patient is R-foot dominant. Patient not anticoagulated. Related Data Home Medications ?Medication ?Instructions ?Recorded ?Confirmed [id number]-[id number] 1 ea PO DAILY 07/05/12 09/09/24 tablet (Cerovite Senior) lactase 9,000 unit tablet (Dairy 9,000 unit PO ONCE PRN lactose 09/22/18 09/09/24 Relief) intolerance Incontinence briefs #6 ea 07/25/23 09/09/24 ondansetron HCl 4 mg tablet 4 mg PO Q8H PRN nausea and 03/30/24 09/09/24 vomiting #10 tabs Previous Rx's ?Medication ?Instructions ?Recorded Incontinence briefs #6 ea 07/25/23 ondansetron HCl 4 mg tablet 4 mg PO Q8H PRN nausea and 03/30/24 vomiting #10 tabs Allergies Allergy/AdvReac Type Severity Reaction Status Date / Time pollen Allergy Unknown Other (See Uncoded 09/09/24 09:49 Comment) scents in soap, air Allergy Unknown watery eyes Uncoded 09/09/24 09:49 freshners, etc. General Stated Complaint: Orthopedic CLEMENTINA: 4 Review of Systems All systems reviewed & are unremarkable except as noted in HPI and below Exam Narrative Exam Narrative: GENERAL APPEARANCE: Well-nourished, non-toxic, awake and alert, atraumatic, no acute distress. SKIN: Warm, pink, dry, intact, without rashes/lesions/ulcerations. HEAD: Normocephalic, atraumatic, normal hair distribution for gender/age. EYES: Normal conjunctiva, no exudates on lids/lashes. ENT: Nares patent, no circumoral cyanosis, no facial swelling NECK: Supple, trachea midline, painless cervical ROM. LUNGS/CHEST: Non-labored respirations, normal A/P diameter, symmetrical expansion, no chest wall deformity HEART (CV/PV): Regular rate, no peripheral edema, no JVD. ABDOMEN: Soft, non-distended, no guarding. MSK: Normal ROM, no swelling/deformity to bilateral UEs or LEs, moving all extremities without weakness, no cyanosis, spine midline without tenderness, normal curvature, mild tenderness to the L ankle / foot lateral MT without crepitus, ecchymosis, strength and ROM 5/5, L dorsalis pedis pulse 2+ NEURO: Mental Status AAOx4 - alert to person, place, time, events No facial droop, no forehead involvement. Motor: No focal weakness - strength 5/5 in bilateral UEs and LEs, proximal and distal, symmetric. Sensory: sensation intact to light touch globally. Gait normal: patient ambulated without ataxia into ED room. PSYCH: euthymic, cooperative, pleasant, appropriate speech Course Vital Signs Vital signs: Vital Signs Temperature 36.2 C L 09/09/24 09:45 Pulse 68 09/09/24 09:45 Respiratory Rate 16 09/09/24 09:45 Blood Pressure 99/49 L 09/09/24 09:45 Pulse Oximetry 97 09/09/24 09:45 Temperature 36.2 C L 09/09/24 09:45 Temperature Source Tympanic 09/09/24 09:45 Pulse 68 09/09/24 09:45 Respiratory Rate 16 09/09/24 09:45 Blood Pressure 99/49 L 09/09/24 09:45 Pulse Oximetry 97 09/09/24 09:45 Medical Decision Making This dictation utilizes [id number] dictation software and may contain unedited grammatical errors. 79 year-old female presents to ED today by POV/ambulating with a chief complaint of L foot/ankle pain with onset last night after slipping on a wet rock while watering her garden- was able to remain standing for cooking dinner etc last night. Quality described as mild anterior ankle and lateral foot pain, no radiation to numbness/tingling, ecchymosis, swelling, deformity, proximal calf pain. Severity is described as mild. Palliating factors include nothing specific attempted. Provoking factors include weight-bearing. Events leading up to the incident/Associated Symptoms: Patient is R-foot dominant. Patients' medical history: Noncontributory. Family and social history: Noncontributory. Pertinent exam findings / vital signs include mild tenderness to the L ankle / foot lateral MT without crepitus, ecchymosis, strength and ROM 5/5, L dorsalis pedis pulse 2+. Differential / pathologies of concern include sprain. Diagnostic studies of: -XR L Ankle & Foot - no acute fracture. Interventions of: -None. ED Course/Assessment/Plan: 79 y/o F counseled on sprain of L ankle, recommend RICE therapy, and APAP/NSAIDs as tolerated - follow with orthopaedics for pain lasting longer than 2 weeks. Findings not consistent with fracture or NV compromise. Disposition of Sprain of Left Ankle. Patient verbalized understanding of the plan and return to ED criteria and engaged in shared decision making. Medical Records Medical records reviewed: Yes I reviewed the patient's medical records. Imaging Data Radiologic Study: Attestation: I personally reviewed and interpreted this imaging study as follows: Imaging: X-Ray Radiologist's impression: XR FOOT LT COMPLETE XR ANKLE LT COMPLETE EXAM: XR ANKLE LT COMPLETE and XR foot LT complete CLINICAL HISTORY: slip fall last night L foot/ankle pain TECHNIQUE: 2D digital imaging was performed of the left foot and ankle. Six images were obtained. AP, lateral and oblique views were obtained. COMPARISON: There are no priors for comparison. FINDINGS: BONES: No acute fracture is present. No bony destructive lesion is seen. JOINTS:The ankle mortise is normally aligned. The joints are well maintained in the foot and ankle. SOFT TISSUE: Normal. IMPRESSION: There is no acute fracture or dislocation. PFSH All Active Problems (Updated 09/09/24 @ 12:01 by SHAYLEE Jerome) Sprain of left ankle (Acute) History of anemia (Acute) internal hemorrhoid Lactose intolerance (Chronic) Combined forms of age-related cataract, bilateral (Acute) IFG (impaired fasting glucose) (Chronic ~2018) Urinary incontinence (Chronic) Osteoporosis, unspecified (Chronic 04/30/11) DXA 2011: Lumbar spine T-score -2.6 (down -5.7% from 2008 study); Hip T-score -2.4 (improved +4.7); 2nd course alendronate started ~12/2015 --> d/c'ed Jan 2021 Medical History Rectal bleeding internal hemorrhoid Fatigue Hematochezia Abdominal pain Gallbladder polyp (09/14/16) F/u US showing stability -- no further f/u necessary Surgical History History of colonoscopy x2 Biopsy, Soft Tissue (06/09/17) sebaceous cyst upper back Family History Mother , Dementia--AD at age 89. Hypertensive disorder, systemic arterial Med Osteoporosis Father , Cirrhosis at age 72. Hemochromatosis Maternal Aunt Colorectal cancer Other Heart disease Social History Smoking/Tobacco Use Status: Former Tobacco Use Quit Date: 03/21/65 Tobacco: How many years used: 3 Smoking risk assessment performed?: Yes Alcohol Intake: current Alcohol Intake frequency: holidays/special occasions only Alcohol type: wine Drug use: Never Substance use type: does not use Adopted: No Caregiver/Support person: No Foster care: No Household members: spouse Housing: house Number of Children: 1 number of grandchildren: 4 Communication Needs: None Education Level: master's degree Do you need help understanding health information?: Rarely current occupation: Retired Pets and animals: Yes Pets and animals: dog(s) Sexually active: No Do you think of yourself as: straight/heterosexual Current gender identity: female What is your relationship status?: How often do you talk on the phone with friends or family?: three or more times per week Do you belong to any clubs or organized social groups?: yes Panel score (0-1 are the most socially isolated patients): 3 What type of physical activity do you participate in: walking, regular exercise and other Details: kayaking, skiiing, gardening, hiking Duration: 45-60 minutes/day Frequency: 3-4 times per week Macie/Presybeterian: Taoist Special macie needs: No Seatbelt use: always Helmet use: Yes Drive intox or ride w/intox solo truck driver: No Water heater temp set <120 deg: Yes Working smoke detector in home: Yes Fire extinguisher in home: Yes Carbon monox detector in home: Yes Firearms in home: Yes (unloaded, no locked) Do you feel safe at home: Yes Do you feel safe in your relationship?: Yes Female Reproductive History Menstrual Menopause type: natural History History Para 1 Hx # Term Pregnancies Multiple births Hx # Pregnancies Ectopic pregnancies AB induced Hx Number of Living Children AB spontaneous
[2024-09-09 10:47] VITALS: BP 98/46; PULSE 64; RESP 16; O2SAT 97
[2024-09-09 12:06] VITALS: BP 97/56; PULSE 64; RESP 16; O2SAT 99
== END 2024-09-09 12:17 | disposition home or self-care (01) ==
PROVIDERS: Emergency Provider Physician Assistant; PCP Nurse Practitioner Adult Health
DX: S93.402A Sprain of unspecified ligament of left ankle, initial encounter (principal); W18.40XA Slipping, tripping and stumbling without falling, unspecified, initial encounter; Y93.H2 Activity, gardening and landscaping; Y92.017 Garden or yard in single-family (private) house as the place of occurrence of the external cause
CPT/HCPCS: 99283; 73610; 73630